=== PATIENT | female | born 1940 | race Caucasian/White ===

== ENCOUNTER → 2017-03-10 | Outpatient (CLI) | payer MEDICARE ==
[~2017-03-10] MED LIST: LISI-167 PO; REGADENOSON 0.4 MG/5 ML SYRINGE ONE; SIMV40TA3 PO
== END | disposition home or self-care (01) ==
LOC: CFH 06:38
PROVIDERS: ATTEND Internal Medicine Cardiovascular Disease
DX: I08.0 Rheumatic disorders of both mitral and aortic valves (principal); I77.819 Aortic ectasia, unspecified site; I25.5 Ischemic cardiomyopathy; I10 Essential (primary) hypertension; E78.5 Hyperlipidemia, unspecified; I63.9 Cerebral infarction, unspecified
CPT/HCPCS: 78452; 93017; 93306; A9502; J2785

== ENCOUNTER → 2017-12-07 | Outpatient (CLI) | payer MEDICARE ==
[~2017-12-07] MED LIST changes: -REGADENOSON 0.4 MG/5 ML SYRINGE ONE
== END ==
LOC: CVU 06:41
PROVIDERS: ATTEND Surgery Vascular Surgery
DX: Z01.818 Encounter for other preprocedural examination (principal); I71.4 Abdominal aortic aneurysm, without rupture; I10 Essential (primary) hypertension; E78.5 Hyperlipidemia, unspecified
CPT/HCPCS: 93978

== ENCOUNTER 2017-12-30 10:02 | Inpatient (IN) | payer MEDICARE ==
[~2017-12-30] VITALS: Ht 175.3 cm; Wt 98.0 kg
[2017-12-30] MEDS ORDERED: LACTATED RINGERS 1,000 ML IV SCH (10:49)
[2017-12-30] MEDS ORDERED: ASPI-650 PO (11:07)
[2017-12-30 11:17] VITALS: BP 134/90
[2017-12-30] MEDS ORDERED: VITAMIN C PO (11:17)
[2017-12-30] MEDS ORDERED: FISH OIL PO (11:17)
[2017-12-30] MEDS ORDERED: MULT-658 PO (11:17)
[2017-12-30] MEDS ORDERED: VITAMIN E PO (11:17)
[2017-12-30] MEDS ORDERED: PROTAMINE SULFATE 10 MG/ML, 5ML ONE (11:19)
[2017-12-30] MEDS ORDERED: THROMBIN 20,000 UNIT VIAL TP ONE (11:19)
[2017-12-30] MEDS ORDERED: HEPARIN 1,000 UNITS/ML, 10ML ONE (11:19)
[2017-12-30] MEDS ORDERED: BACITRACIN 50,000 UNIT ONE (11:20)
[2017-12-30] MEDS ORDERED: FENTANYL PF 250 MCG/5ML ONE (11:47)
[2017-12-30] MEDS ORDERED: FENTANYL PF 100 MCG/2ML IV PRN (13:00)
[2017-12-30] MEDS ORDERED: PROMETHAZINE 25 MG/ML, 1ML IV PRN (13:00)
[2017-12-30] MEDS ORDERED: hydrALAzine 20 MG/ML, 1ML IV PRN (13:00)
[2017-12-30] MEDS ORDERED: METOPROLOL 1 MG/ML, 5ML IV PRN (13:00)
[2017-12-30] MEDS ORDERED: EPHEDRINE 50 MG/ML, 1ML IVPush PRN (13:00)
[2017-12-30] MEDS ORDERED: LABETALOL 5MG/ML, 20ML IV PRN (13:00)
[2017-12-30] MEDS ORDERED: ONDANSETRON 2MG/ML, 2ML IV PRN ×2 (13:00→17:00)
[2017-12-30] MEDS ORDERED: ACETAMINOPHEN 325 MG TABLET PO PRN (13:00)
[2017-12-30] MEDS ORDERED: HYDROmorphone 1 MG/ML, 1ML IV PRN (13:00)
[2017-12-30] MEDS ORDERED: ALBUTEROL SULFATE 2.5 MG/3 ML NPPB PRN (13:00)
[2017-12-30] MEDS ORDERED: OXYcodone 5 MG/5 ML ORAL.SOL UDC ONE (14:25)
[2017-12-30] MEDS ORDERED: ACETAMINOPHEN 650 MG/20.3 ML UDC ONE (14:25)
[2017-12-30] MEDS: OXYcodone 5 MG/5 ML ORAL.SOL UDC PO PRN ×2 (14:28→21:44)
[2017-12-30] MEDS ORDERED: GLYCOPYRROLATE 0.2MG/1ML, 5ML ONE (15:35)
[2017-12-30] MEDS ORDERED: ONDANSETRON 2MG/ML, 2ML ONE (15:35)
[2017-12-30] MEDS ORDERED: ROCURONIUM 10MG/ML,5ML ONE (15:35)
[2017-12-30] MEDS ORDERED: PROPOFOL 10 MG/ML, 20ML ONE (15:35)
[2017-12-30] MEDS ORDERED: NEOSTIGMINE 1 MG/ML, 10ML ONE (15:35)
[2017-12-30] MEDS ORDERED: DEXAMETHASONE 4 MG/ML, 1ML ONE (15:35)
[2017-12-30] MEDS ORDERED: CEFAZOLIN 1,000 MG ONE (15:35)
[2017-12-30] MEDS ORDERED: HYDROcodone/APAP 5/325 TABLET PO PRN (17:00)
[2017-12-30] MEDS ORDERED: POTASSIUM CHLORIDE 20 MEQ in D5%-0.45% NACL 1,000 ML IV SCH (18:00)
[2017-12-30] MEDS ORDERED: morphine SULFATE 10 MG/ML, 1ML IV PRN (18:00)
[2017-12-30 19:45] VITALS: BP 129/76
[2017-12-30] MEDS: SODIUM CHLORIDE FLUSH 10ML SYR IVF SCH (21:00)
[2017-12-31] VITALS: BP 112/64
[2017-12-31 04:17] VITALS: BP 119/64
[2017-12-31 05:17] LABS: LYMPHOCYTES % (AUTO) 10 % (22-44); MEAN CORPUSCULAR HEMOGLOBIN 27.1 pg (27.0-34.8); MEAN CORPUSCULAR HGB CONC 32.8 g/dL (32.4-35.8); MEAN CORPUSCULAR VOLUME 82.6 fL (80-100); MEAN PLATELET VOLUME 8.5 fL (7.4-10.4); NEUTROPHILS % (AUTO) 81 % (42-75); PLATELET COUNT 191 x10^3/uL (130-400); RED BLOOD COUNT 4.29 x10^6/uL (3.82-5.3)
[2017-12-31 05:18] LABS: BASOPHILS # (AUTO) 0.02 x10^3/uL (0-0.1); BASOPHILS % (AUTO) 0 % (0-1); EOSINOPHILS # (AUTO) 0.03 x10^3/uL (0-0.4); EOSINOPHILS % (AUTO) 0 % (1-7); LYMPHOCYTES # (AUTO) 0.78 x10^3/uL (1-3.4); MD NO; MONOCYTES # (AUTO) 0.68 x10^3/uL (0.2-0.8); MONOCYTES % (AUTO) 8 % (2-9)
[2017-12-31 05:22] LABS: ANION GAP 5 mmol/L (5-15); CALCIUM 8.6 mg/dL (8.5-10.1); CHLORIDE 107 mmol/L (98-107); CREATININE 0.91 mg/dL (0.55-1.02)
[2017-12-31 08:42] VITALS: BP 115/66
[2017-12-31] MEDS: SODIUM CHLORIDE FLUSH 10ML SYR IVF SCH (09:00)
[2017-12-31] MEDS ORDERED: HYDR-3240 PO (10:14)
== END 2017-12-31 10:54 | disposition home or self-care (01) | DRG 908 ==
LOC: ORIP 10:02 → 4NOR 15:34
PROVIDERS: ADMIT Surgery Vascular Surgery; ATTEND Surgery Vascular Surgery
PROC: B4101ZZ Fluoroscopy of Abdominal Aorta using Low Osmolar Contrast (ICD-10-PCS; 2017-12-30)
PROC: 04V03DZ Restriction of Abdominal Aorta with Intraluminal Device, Percutaneous Approach (ICD-10-PCS; principal; 2017-12-30 12:00)
DX: T85.638A Leakage of other specified internal prosthetic devices, implants and grafts, initial encounter (principal); E44.1 Mild protein-calorie malnutrition; I71.4 Abdominal aortic aneurysm, without rupture; Y83.8 Other surgical procedures as the cause of abnormal reaction of the patient, or of later complication, without mention of misadventure at the time of the procedure; Y92.89 Other specified places as the place of occurrence of the external cause
CPT/HCPCS: 34710; 36415; 80048; 85025; 86850; 86870; 86900; 86922; 86923; 93005; J0690; J1100; J1644; J2405; J2704; J2710; J2720; J3010; J3490; C1751; C1768; C1769; C1894; C2628; J7120

== ENCOUNTER 2018-01-10 00:53 | Inpatient (IN) | payer MEDICARE ==
[~2018-01-10] VITALS: Ht 175.3 cm; Wt 96.1 kg
[~2018-01-10 00:53] MED LIST changes: +ASPI-650 PO; +FISH OIL PO; +HYDR-3240 PO; +MULT-658 PO; +VITAMIN C PO; +VITAMIN E PO
[2018-01-10 01:29] LABS: MICROSCOPIC NOT IND
[2018-01-10] MEDS ORDERED: PIPERACILLIN/TAZO/PMX 3.375GM 50 ML IVPB ONE (01:30)
[2018-01-10] MEDS ORDERED: PHARMACOKINETIC CONSULTATION MC ONE ×2 (01:30)
[2018-01-10] MEDS ORDERED: PLEASE ENTER HEIGHT AND WEIGHT MC SCH (01:30)
[2018-01-10] MEDS ORDERED: SODIUM CHLORIDE 0.9% 1,000ML IVBOLUS ONE (01:30)
[2018-01-10] MEDS ORDERED: VANCOMYCIN 2,000 MG in SODIUM CHLORIDE 0.9% 500 ML IV ONE (01:30)
[2018-01-10] MEDS ORDERED: VANCOMYCIN PER PHARMACY IV ONE (01:30)
[2018-01-10 01:31] LABS: CULTURE INDICATED? NO
[2018-01-10] MEDS ORDERED: PIPERACILLIN/TAZO/PMX 3.375GM 50 ML ONE (01:34)
[2018-01-10 01:41] LABS: BASOPHILS % (AUTO) 0 % (0-1); EOSINOPHILS # (AUTO) 0.03 x10^3/uL (0-0.4); EOSINOPHILS % (AUTO) 0 % (1-7); LYMPHOCYTES # (AUTO) 0.45 x10^3/uL (1-3.4); LYMPHOCYTES % (AUTO) 3 % (22-44); MD NO; MEAN CORPUSCULAR VOLUME 81.9 fL (80-100); MEAN PLATELET VOLUME 7.9 fL (7.4-10.4); MONOCYTES # (AUTO) 0.72 x10^3/uL (0.2-0.8); MONOCYTES % (AUTO) 5 % (2-9); NEUTROPHILS # (AUTO) 12.32 x10^3/uL (1.8-6.8); NEUTROPHILS % (AUTO) 91 % (42-75); PLATELET COUNT 271 x10^3/uL (130-400); RED BLOOD COUNT 4.39 x10^6/uL (3.82-5.3); RED CELL DISTRIBUTION WIDTH 18.1 % (9.6-15.2)
[2018-01-10 01:51] LABS: ALBUMIN 3.2 g/dL (3.4-5.0); ANION GAP 6 mmol/L (5-15); CALCIUM 8.8 mg/dL (8.5-10.1); CHLORIDE 109 mmol/L (98-107); CREATININE 0.94 mg/dL (0.55-1.02)
[2018-01-10] MEDS ORDERED: OMNIPAQUE 350 MG/ML, 100ML BOTTLE ONE (03:09)
[2018-01-10] MEDS ORDERED: HYDROcodone/APAP 5/325 TABLET PO PRN (05:00)
[2018-01-10] MEDS ORDERED: morphine SULFATE 10 MG/ML, 1ML IVPush PRN (05:00)
[2018-01-10] MEDS ORDERED: hydrALAzine 20 MG/ML, 1ML IVPush PRN (05:00)
[2018-01-10] MEDS: LACTATED RINGERS 1,000 ML IV SCH (05:11)
[2018-01-10 05:20] VITALS: BP 124/79
[2018-01-10 08:04] VITALS: BP 115/64
[2018-01-10] MEDS: OMEGA-3/FISH OIL CAPSULE PO SCH (08:47)
[2018-01-10] MEDS: ASCORBIC ACID 500 MG TABLET PO SCH (08:51)
[2018-01-10] MEDS: MULTIVITAMINS/MINERALS TABLET PO SCH (08:51)
[2018-01-10] MEDS ORDERED: VITAMIN E 400 UNITS CAPSULE PO SCH (09:00)
[2018-01-10] MEDS: PIPERACILLIN/TAZO/PMX 3.375GM 50 ML IV SCH ×3 (09:06→21:28)
[2018-01-10 13:06] VITALS: BP 106/65
[2018-01-10 19:51] VITALS: BP 104/54
[2018-01-10] MEDS: LISINOPRIL 10 MG TABLET PO SCH (21:28)
[2018-01-10] MEDS: SIMVASTATIN 40 MG TABLET PO SCH (21:28)
[2018-01-10] MEDS: ACETAMINOPHEN 325 MG TABLET PO PRN (21:38)
[2018-01-11 02:28] VITALS: BP 101/57
[2018-01-11] MEDS: PIPERACILLIN/TAZO/PMX 3.375GM 50 ML IV SCH ×4 (03:42→21:13)
[2018-01-11] MEDS: LACTATED RINGERS 1,000 ML IV SCH ×2 (03:45→21:13)
[2018-01-11 04:53] LABS: BASOPHILS # (AUTO) 0.03 x10^3/uL (0-0.1); BASOPHILS % (AUTO) 0 % (0-1); EOSINOPHILS # (AUTO) 0.14 x10^3/uL (0-0.4); EOSINOPHILS % (AUTO) 2 % (1-7); LYMPHOCYTES # (AUTO) 0.81 x10^3/uL (1-3.4); LYMPHOCYTES % (AUTO) 8 % (22-44); MD NO; MEAN CORPUSCULAR HEMOGLOBIN 26.4 pg (27.0-34.8); MEAN CORPUSCULAR VOLUME 82.5 fL (80-100); MEAN PLATELET VOLUME 8.1 fL (7.4-10.4); MONOCYTES # (AUTO) 0.92 x10^3/uL (0.2-0.8); MONOCYTES % (AUTO) 9 % (2-9); NEUTROPHILS # (AUTO) 7.98 x10^3/uL (1.8-6.8); NEUTROPHILS % (AUTO) 81 % (42-75); PLATELET COUNT 239 x10^3/uL (130-400); RED BLOOD COUNT 3.95 x10^6/uL (3.82-5.3); RED CELL DISTRIBUTION WIDTH 18.5 % (9.6-15.2)
[2018-01-11 05:00] LABS: ALBUMIN 2.7 g/dL (3.4-5.0); ANION GAP 4 mmol/L (5-15); CALCIUM 8.5 mg/dL (8.5-10.1); CHLORIDE 111 mmol/L (98-107)
[2018-01-11 05:05] LABS: ALANINE AMINOTRANSFERASE 14 U/L (12-78); ALKALINE PHOSPHATASE 66 U/L (45-117); BILIRUBIN,TOTAL 1.1 mg/dL (0.2-1.0); CREATININE 0.87 mg/dL (0.55-1.02); TOTAL PROTEIN 6.4 g/dL (6.4-8.2)
[2018-01-11 07:54] VITALS: BP 124/75
[2018-01-11] MEDS: MULTIVITAMINS/MINERALS TABLET PO SCH (08:55)
[2018-01-11] MEDS: ASCORBIC ACID 500 MG TABLET PO SCH (08:56)
[2018-01-11] MEDS: VITAMIN E 400 UNITS CAPSULE PO SCH (08:56)
[2018-01-11] MEDS: OMEGA-3/FISH OIL CAPSULE PO SCH (08:57)
[2018-01-11 12:28] VITALS: BP 105/67
[2018-01-11 19:04] VITALS: BP 109/61
[2018-01-11] MEDS: LISINOPRIL 10 MG TABLET PO SCH (21:00)
[2018-01-11] MEDS: SIMVASTATIN 40 MG TABLET PO SCH (21:13)
[2018-01-12 00:50] VITALS: BP 125/77
[2018-01-12] MEDS: PIPERACILLIN/TAZO/PMX 3.375GM 50 ML IV SCH ×4 (03:30→20:47)
[2018-01-12 07:36] VITALS: BP 136/75
[2018-01-12] MEDS: MULTIVITAMINS/MINERALS TABLET PO SCH (08:28)
[2018-01-12] MEDS: LISINOPRIL 10 MG TABLET PO SCH (08:28)
[2018-01-12] MEDS: OMEGA-3/FISH OIL CAPSULE PO SCH (08:28)
[2018-01-12] MEDS: ASCORBIC ACID 500 MG TABLET PO SCH (08:28)
[2018-01-12] MEDS: VITAMIN E 400 UNITS CAPSULE PO SCH (08:28)
[2018-01-12 13:14] VITALS: BP 139/83
[2018-01-12] MEDS: LACTATED RINGERS 1,000 ML IV SCH ×2 (15:30→17:27)
[2018-01-12] MEDS ORDERED: BUPIVACAINE/PF 0.5% ONE (16:01)
[2018-01-12] MEDS ORDERED: BACITRACIN 50,000 UNIT ONE (16:02)
[2018-01-12] MEDS ORDERED: EPINEPHRINE 1 MG/ML, 1ML ONE (16:02)
[2018-01-12] MEDS ORDERED: PROPOFOL 50 ML ONE (16:05)
[2018-01-12] MEDS ORDERED: PROPOFOL 10 MG/ML, 20ML ONE (16:21)
[2018-01-12] MEDS ORDERED: ONDANSETRON ODT 8 MG PO PRN (17:00)
[2018-01-12] MEDS ORDERED: ACETAMINOPHEN 325 MG TABLET PO PRN (17:00)
[2018-01-12] MEDS ORDERED: FENTANYL PF 100 MCG/2ML IV PRN (17:00)
[2018-01-12] MEDS ORDERED: MIDAZOLAM 1 MG/ML, 2ML IV PRN (17:00)
[2018-01-12] MEDS: ACETAMINOPHEN 325 MG TABLET PO PRN (17:31)
[2018-01-12 17:33] VITALS: BP 139/79
[2018-01-12 19:21] VITALS: BP 110/62
[2018-01-12] MEDS: SIMVASTATIN 40 MG TABLET PO SCH (20:47)
[2018-01-13 00:45] VITALS: BP 116/71
[2018-01-13] MEDS: PIPERACILLIN/TAZO/PMX 3.375GM 50 ML IV SCH ×2 (03:10→09:32)
[2018-01-13 04:06] LABS: CLOSTRIDIUM DIFFICILE ANTIGEN NEGATIVE; CLOSTRIDIUM DIFFICILE TOXIN NEGATIVE (Negative)
[2018-01-13 04:43] LABS: BASOPHILS # (AUTO) 0.02 x10^3/uL (0-0.1); BASOPHILS % (AUTO) 0 % (0-1); EOSINOPHILS # (AUTO) 0.26 x10^3/uL (0-0.4); EOSINOPHILS % (AUTO) 5 % (1-7); LYMPHOCYTES # (AUTO) 0.78 x10^3/uL (1-3.4); LYMPHOCYTES % (AUTO) 13 % (22-44); MD NO; MEAN CORPUSCULAR HGB CONC 32.8 g/dL (32.4-35.8); MEAN CORPUSCULAR VOLUME 82.4 fL (80-100); MEAN PLATELET VOLUME 7.8 fL (7.4-10.4); MONOCYTES # (AUTO) 0.57 x10^3/uL (0.2-0.8); MONOCYTES % (AUTO) 10 % (2-9); NEUTROPHILS % (AUTO) 72 % (42-75); PLATELET COUNT 279 x10^3/uL (130-400); RED BLOOD COUNT 4.12 x10^6/uL (3.82-5.3)
[2018-01-13 04:49] LABS: ANION GAP 6 mmol/L (5-15); CHLORIDE 109 mmol/L (98-107); CREATININE 0.84 mg/dL (0.55-1.02)
[2018-01-13 08:00] VITALS: BP 154/82
[2018-01-13] MEDS: MULTIVITAMINS/MINERALS TABLET PO SCH (08:26)
[2018-01-13] MEDS: VITAMIN E 400 UNITS CAPSULE PO SCH (08:26)
[2018-01-13] MEDS: ASCORBIC ACID 500 MG TABLET PO SCH (08:26)
[2018-01-13] MEDS: OMEGA-3/FISH OIL CAPSULE PO SCH (08:27)
[2018-01-13] MEDS: LISINOPRIL 10 MG TABLET PO SCH (08:27)
[2018-01-13] MEDS: LACTATED RINGERS 1,000 ML IV SCH (08:28)
[2018-01-13] MEDS ORDERED: SULF1TAB24 PO (11:47)
== END 2018-01-13 13:05 | disposition home or self-care (01) | DRG 862 ==
LOC: ED 01:04 → EDIP 03:08 → 3NW 04:35 → DCLOUNGE 01-13 12:41
PROVIDERS: ADMIT Obstetrics & Gynecology; ATTEND Hospitalist
PROC: 0T9B70Z Drainage of Bladder with Drainage Device, Via Natural or Artificial Opening (ICD-10-PCS; principal; 2018-01-10)
PROC: 0J9C00Z Drainage of Pelvic Region Subcutaneous Tissue and Fascia with Drainage Device, Open Approach (ICD-10-PCS; 2018-01-12)
DX: T81.4XXA Infection following a procedure, initial encounter (principal); A41.9 Sepsis, unspecified organism; E43 Unspecified severe protein-calorie malnutrition; L02.214 Cutaneous abscess of groin; L03.314 Cellulitis of groin; I10 Essential (primary) hypertension; R32 Unspecified urinary incontinence; D63.8 Anemia in other chronic diseases classified elsewhere; E78.00 Pure hypercholesterolemia, unspecified; E78.5 Hyperlipidemia, unspecified; I25.2 Old myocardial infarction; I72.3 Aneurysm of iliac artery; I89.8 Other specified noninfective disorders of lymphatic vessels and lymph nodes; K57.30 Diverticulosis of large intestine without perforation or abscess without bleeding; Y83.8 Other surgical procedures as the cause of abnormal reaction of the patient, or of later complication, without mention of misadventure at the time of the procedure; Y92.89 Other specified places as the place of occurrence of the external cause; M47.816 Spondylosis without myelopathy or radiculopathy, lumbar region; Z86.73 Personal history of transient ischemic attack (TIA), and cerebral infarction without residual deficits; Z87.891 Personal history of nicotine dependence; Z68.31 Body mass index [BMI] 31.0-31.9, adult
CPT/HCPCS: 36415; 71045; 74177; 80048; 80053; 81003; 82040; 83605; 83735; 84100; 85025; 87040; 87324; 93005; 96365; 96366; 96368; C1729; J0171; J2543; J2704; J3370; J3490; Q9967; J7030; J7040; J7120

== ENCOUNTER → 2018-05-03 | Outpatient (CLI) | payer MEDICARE ==
[~2018-05-03] MED LIST changes: +OMNIPAQUE 350 MG/ML, 100ML BOTTLE ONE; +SULF1TAB24 PO
== END | disposition home or self-care (01) ==
LOC: CFH 08:49
PROVIDERS: ATTEND Surgery Vascular Surgery
DX: I72.3 Aneurysm of iliac artery (principal); R91.1 Solitary pulmonary nodule; I71.9 Aortic aneurysm of unspecified site, without rupture; I10 Essential (primary) hypertension
CPT/HCPCS: 74174; Q9967

== ENCOUNTER → 2018-06-21 | Outpatient (CLI) | payer MEDICARE ==
[~2018-06-21] MED LIST changes: -OMNIPAQUE 350 MG/ML, 100ML BOTTLE ONE
== END | disposition home or self-care (01) ==
LOC: CFH 08:31
PROVIDERS: ATTEND Internal Medicine Cardiovascular Disease
DX: I08.0 Rheumatic disorders of both mitral and aortic valves (principal); I42.9 Cardiomyopathy, unspecified; I10 Essential (primary) hypertension; E78.5 Hyperlipidemia, unspecified; I25.2 Old myocardial infarction; Z86.73 Personal history of transient ischemic attack (TIA), and cerebral infarction without residual deficits; Z87.891 Personal history of nicotine dependence
CPT/HCPCS: 93306